=== PATIENT | male | born 1990 | race Caucasian/White ===

== ENCOUNTER 2021-08-28 20:48 | Emergency (ER) | payer MEDICAID ==
[~2021-08-28] VITALS: Ht 170.2 cm; Wt 95.3 kg
[2021-08-28] MEDS ORDERED: SODIUM CHLORIDE 0.9% 1,000 ML IV ONE (21:15)
[2021-08-28 21:55] LABS: BASOPHILS % 0.3 % (0.0-2.0); CHLORIDE 108 mEq/L (98-107); EOSINOPHILS % 1.4 % (0.0-5.0); HEMATOCRIT. 40.4 % (42.0-52.0); HEMOGLOBIN. 14.2 g/dL (14.0-18.0); LYMPHOCYTES % 21.5 % (20.0-50.0); MEAN CORPUSCULAR HEMOGLOBIN 30.4 pg (28.0-32.0); MEAN CORPUSCULAR VOLUME 86.7 fL (80.0-94.0); NEUTROPHILS % 67.8 % (40.0-76.0); PLATELET 223 x1000/uL (130-400); RED BLOOD CELL COUNT 4.66 mill/uL (4.7-6.1); RED CELL DISTRIBUTION WIDTH 13.8 % (11.6-14.6)
[2021-08-28 21:59] LABS: ETHANOL BLOOD < 10 mg/dL
[2021-08-28 22:03] LABS: CREATINE KINASE 212 IU/L (39-308)
[2021-08-28 23:25] LABS: CLARITY URINE CLOUDY (CLEAR); COLOR URINE DARK YELLOW (YELLOW); KETONES URINE NEGATIVE (NEGATIVE); LEUKOCYTE ESTERASE URINE NEGATIVE (NEGATIVE); NITRITE URINE NEGATIVE (NEGATIVE); OCCULT BLOOD URINE NEGATIVE (NEGATIVE); PROTEIN URINE 1+ (NEGATIVE); SPECIFIC GRAVITY URINE 1.037 (1.005-1.030); UROBILINOGEN URINE 0.2 E.U./dL (0.2-1.0)
[2021-08-28 23:35] LABS: *AMPHETAMINES SCREEN URINE PRESUMTIVE POSITIVE (NEGATIVE); *BARBITURATES SCREEN URINE NEGATIVE (NEGATIVE); *BENZODIAZEPINES SCREEN URINE NEGATIVE (NEGATIVE); *COCAINE SCREEN URINE NEGATIVE (NEGATIVE)
[2021-08-28 23:36] LABS: CANNABINOID URINE SCREEN PRESUMTIVE POSITIVE (NEGATIVE); METHADONE URINE SCREEN NEGATIVE (NEGATIVE); OPIATES URINE SCREEN NEGATIVE (NEGATIVE); PHENCYCLIDINE URINE SCREEN NEGATIVE (NEGATIVE)
[2021-08-29] MEDS ORDERED: ARIPIPRAZOLE 5MG TABLET PO SCH (10:00)
[2021-08-29] MEDS: FLUOXETINE HCL 10 MG CAPSULE PO SCH (10:46)
[2021-08-30] MEDS: ARIPIPRAZOLE 2MG TABLET PO SCH (10:00)
[2021-08-30] MEDS: FLUOXETINE HCL 10 MG CAPSULE PO SCH (10:00)
[2021-08-31] MEDS: ARIPIPRAZOLE 2MG TABLET PO SCH (09:52)
[2021-08-31] MEDS: FLUOXETINE HCL 10 MG CAPSULE PO SCH (09:52)
[2021-09-01 08:05] VITALS: BP 115/78
[2021-09-01] MEDS ORDERED: ARIP2TAB3 PO (08:26)
[2021-09-01] MEDS ORDERED: FLUO10TA3 PO (08:26)
== END 2021-09-01 08:56 | disposition home or self-care (01) ==
LOC: ER 20:48
DX: T43.592A Poisoning by other antipsychotics and neuroleptics, intentional self-harm, initial encounter (principal); F15.10 Other stimulant abuse, uncomplicated; F16.10 Hallucinogen abuse, uncomplicated; F12.10 Cannabis abuse, uncomplicated; F91.8 Other conduct disorders; F20.9 Schizophrenia, unspecified; F32.A Depression, unspecified; Z20.822 Contact with and (suspected) exposure to COVID-19; Z75.1 Person awaiting admission to adequate facility elsewhere; Z59.00 Homelessness unspecified; Y92.89 Other specified places as the place of occurrence of the external cause
CPT/HCPCS: 36415; 80053; 80305; 80307; 80320; 80329; 81003; 82140; 82550; 83690; 85025; 93005; 96360; 99285; C9803; J7030; U0003; U0005; G0480